=== PATIENT | male | born 1975 | race Caucasian/White ===

== ENCOUNTER 2019-01-09 10:16 | Emergency (ER) | payer OTHER ==
[~2019-01-09] VITALS: Ht 182.9 cm; Wt 54.4 kg
[~2019-01-09 10:16] MED LIST: ATIVAN1 MG PO; BACTRIM DS TAB1 EACH PO; CARAFATE1 GM/10 ML PO; DOXYCYCLINE 10100 MG PO; KEFLEX500 MG PO; LYRICA 50 MG50 MG PO; LYRICA300 MG PO; NIACIN 500 MG500 M1 PO; RISPERDAL 1 MG T1 MG PO; RISPERDAL1 MG/1 ML; RISPERDAL2 MG PO; RISPERDAL25 MG/2 ML IM; SERTRALINE HCL100 MG PO; TEGRETOL XR400 MG PO; TRAZODONE HCL50 MG PO; VIMPAT100 MG PO; ZOLOFT 50 MG TA50 M1 PO
[2019-01-09 10:17] VITALS: BP 138/116
== END 2019-01-09 11:18 | disposition home or self-care (01) ==
LOC: ER 10:16
DX: R56.9 Unspecified convulsions (principal); F20.9 Schizophrenia, unspecified; F17.210 Nicotine dependence, cigarettes, uncomplicated; Z91.013 Allergy to seafood

== ENCOUNTER 2019-01-09 11:35 | Emergency (ER) | payer OTHER ==
[~2019-01-09] VITALS: Ht 175.3 cm; Wt 74.8 kg
[2019-01-09 13:08] LABS: ABSOLUTE NEUTROPHILS 4.7 thou/uL (1.4-8.2); BASOPHILS 0.7 % (0.0-2.0); EOSINOPHILS 0.4 % (0.0-3.0); HEMOGLOBIN 15.6 gm/dL (14.0-18.0); LYMPHOCYTES 24.8 % (24.0-44.0); MCHC 34.6 g/dL (28.0-37.0); MCV 98.2 fL (80.0-100.0); MONOCYTES 7.6 % (1.0-8.0); PLATELET COUNT 200 thou/uL (150-400); POLYS 66.5 % (36.0-66.0); RBC 4.58 mil/uL (4.50-6.00); RDW 13.4 % (10.5-14.5); WBC 7.1 thou/uL (4.0-11.0)
[2019-01-09 13:15] LABS: ANION GAP 4 mmol/L (7-16); BUN 7 mg/dL (7-18); CHLORIDE 101 mmol/L (98-107); CO2 31 mmol/L (21-32); GLUCOSE 83 mg/dL (74-106); POTASSIUM 4.6 mmol/L (3.5-5.1); SODIUM 136 mmol/L (136-145)
[2019-01-09 13:24] LABS: TROPONIN-I <0.06 ng/mL (<0.06)
[2019-01-09 16:45] VITALS: BP 117/78
--- NOTE | 2019-01-12 18:01 | EKG ---
[address] [place] [address] ELECTROCARDIOGRAM REPORT Name: SALVADORTRU KARLO [id number] ������������������ Admission: 01/09/19 ������������������ Attend Phys: Discharge: 01/09/19 ������������������ Date of : 75 Report #: [id number] ����������������������������������������������������������������� [id number] THIS REPORT FOR: //name// [facility] Test Date: 2019-01-09 Test Time: 12:45:20 Pat Name: TRU FRANCO Department: Room: Gender: Cement Mixer: : 1975 Requested By: Tru Solomon Order Number: [id number] MD: Kyle Dockery Measurements Intervals [place] Rate: 72 P: 70 WV: 167 QRS: -26 QRSD: 86 T: 83 QT: 345 QTc: 378 Interpretive Statements Sinus rhythm Abnormal R-wave progression, late transition Leftward axis Compared to ECG 05/29/2015 14:36:05 No significant change was found Electronically Signed On 01-12-2019 18:01:41 CDT by Kyle Dockery [email or web address] ��������������������������������������������� <ELECTRONICALLY SIGNED> ���������������������������������������� By: Kyle Dockery MD, [facility] ��������������������������������������������� 01/12/19 1801 1245 1245 Kyle Dockery MD, FACC /EPI
== END 2019-01-09 23:31 | disposition home or self-care (01) ==
LOC: ER 11:35
PROVIDERS: Emergency Medicine
DX: E16.2 Hypoglycemia, unspecified (principal); R55 Syncope and collapse; F17.210 Nicotine dependence, cigarettes, uncomplicated; F20.9 Schizophrenia, unspecified; Z91.013 Allergy to seafood

== ENCOUNTER 2019-03-27 09:11 | Day surgery (SDC) | payer OTHER ==
[~2019-03-27] VITALS: Ht 182.9 cm; Wt 53.5 kg
[~2019-03-27 09:11] MED LIST changes: +CLOBAZAM20 MG PO; +INVEGA SUS117 MG/0.7 IM; +REMERON15 MG PO
[2019-03-27 10:15] VITALS: BP 100/73
--- NOTE | 2019-03-31 06:23 | O ---
[facility] [place] [address] OPERATIVE REPORT Name: RADHA FRANCO Room #: DEP [facility]#: [id number] Admission: 03/27/19 Attend Phys: Emeka Tesfaye MD Discharge: 03/27/19 Date of : 75 Report #: [id number] THIS REPORT FOR: //name// CC: URIEL Tesfaye DATE OF SERVICE: 03/27/2019 PREOPERATIVE DIAGNOSIS: Lesion of left upper lid and brow. POSTOPERATIVE DIAGNOSIS: Lesion of left upper lid and brow. PROCEDURE: Excision of lesion of left upper lid and brow with myocutaneous flap repair of defect. SURGEON: Emeka Tesfaye MD COOK COLD MEAT: None. ANESTHESIA: MAC. COMPLICATIONS: None. INDICATIONS FOR SURGERY: This pleasant 43-year-old gentleman has an erythematous enlarging mass in his central left brow that extends into his upper lid and on to his forehead. The lesion was thought to most likely be benign, but it could be a Hansa cell carcinoma. The lesion is being excised with permanent histopathologic analysis of the tissue with subsequent repair of that ensuing defect. Informed consent was obtained to include but not limited to the potential risk for loss of vision, bleeding, infection, failure to improve the problem, the potential need for further surgery or treatment. DESCRIPTION OF PROCEDURE: The patient was taken to the operating room where 2% Xylocaine with epinephrine mixed with equal parts of 0.75% Marcaine with Wydase was administered to the left brow, the left upper lid, left side of the forehead, the glabella and the left infratemporal fossa. The patient was subsequently prepped and draped in the usual sterile fashion. A fine tip skin marking pen was then used to outline the lesion including 2 mm of normal appearing tissue to ensure that the entire lesion was removed. The incisions were then made with a 15 blade and carried down to the muscular layer. The dissection was then carried across the periosteum staying anterior to the supraorbital neurovascular bundle. The lesion was excised en bloc. It appeared cystic in nature. Hemostasis was achieved in the field with diligent pinpoint monopolar cautery. [address] [address] OPERATIVE REPORT Name: RADHA FRANCO Room #: DEP [facility] [place].R.#: [id number] Admission: 03/27/19 Attend Phys: Emeka Tesfaye MD Discharge: 03/27/19 Date of : 75 Report #: [id number] A myocutaneous flap was then developed laterally to correct the defect. Hemostasis was then re-achieved. The flap was then advanced and secured with interrupted buried 5-0 and 6-0 Vicryl sutures deep. The more superficial closure was accomplished in a linear fashion with interrupted 6-0 plain gut sutures. The wounds were then cleaned and dressed with erythromycin ophthalmic ointment. The patient subsequently transported to the recovery area having tolerated the procedure well with no anesthetic or operative complications being noted. <ELECTRONICALLY SIGNED> By: Emeka Tesfaye MD 03/31/19 0623 1124 1150 Emeka Tesfaye MD /wale
--- NOTE | 2019-03-31 13:46 | PATH ---
[facility] [address] [place] [address] PATHOLOGY RPT PROCEDURE Name: TRU FRANCO [id number] Admission: 03/27/19 Date of : 75 Discharge: 03/27/19 Report #: [id number] Path Case #: [id number] LCA Accession Number: [id number] . 01 Material submitted: . lid - LEFT EYE UPPER LID. Modifiers: left, upper . 02 Diagnosis: "Left eye upper lid lesion", excision: - Epidermal inclusion cyst. (CLW/db; 03/28/2019) LBQ 03/28/2019 1324 Local . 02 Electronically signed: . Kristel Chau MD, Pathologist NPI- [id number] . 01 Gross description: . Received in formalin, labeled "Tru Franco, left eye upper lid", is an unoriented ellipse of hairbearing (anterior aspect) wilson-white skin measuring 1.6 x 0.7 cm with underlying intact roman-white cyst measuring 1.2 x 1.0 x 0.8 cm. The resection margins are inked black. Serially sectioned to reveal a smooth inner lining. Specimen is entirely submitted in A1. ([facility]; 03/27/2019) [facility] 03/28/2019 1321 Local . 02 Pathologist provided ICD-10: L72.0 . 02 CPT . 216001 Specimen Comment: A courtesy copy of this report has been sent to Specimen Comment: [phone]. Specimen Comment: Report sent to / DR GUTIERREZ Performed at: [address], [place] [id number] MD Cabrera Solis MD Phone: [phone] Performed at: [address] [id number] MD Brit Rogers MD Phone: [phone]
[2019-06-04] MEDS ORDERED: PROAIR HFA8.5 GM INH (09:52)
[2019-06-04] MEDS ORDERED: STIOLTO RESPIMAT4 GM INH (09:53)
== END 2019-03-27 12:05 | disposition home or self-care (01) ==
LOC: OR 09:11 → TBA 09:12 → OR 12:05
DX: H02.9 Unspecified disorder of eyelid (principal); L72.0 Epidermal cyst; F20.9 Schizophrenia, unspecified; Z98.890 Other specified postprocedural states; Z88.8 Allergy status to other drugs, medicaments and biological substances; Z87.891 Personal history of nicotine dependence; Z79.899 Other long term (current) drug therapy
CPT/HCPCS: 50010; 50101; 50386; 50398; 51636; 56528; 56531; 62110; 62850; 70005

== ENCOUNTER 2019-06-05 05:41 | Day surgery (SDC) | payer OTHER ==
[~2019-06-05] VITALS: Ht 182.9 cm; Wt 56.7 kg
[~2019-06-05 05:41] MED LIST changes: +PROAIR HFA8.5 GM INH; +STIOLTO RESPIMAT4 GM INH
[2019-06-05 07:20] VITALS: BP 107/78
--- NOTE | 2019-06-09 06:22 | O ---
[facility] [place] [address] OPERATIVE REPORT Name: RADHA FRANCO Room #: DEP [facility]..#: [id number] Admission: 06/05/19 Attend Phys: Emeka Tesfaye MD Discharge: 06/05/19 Date of : 75 Report #: [id number] THIS REPORT FOR: //name// CC: Paolo Tesfaye DATE OF SERVICE: 06/05/2019 PREOPERATIVE DIAGNOSIS: Lesion of right lower lid. POSTOPERATIVE DIAGNOSIS: Lesion of right lower lid. PROCEDURE: Excision of lesion of right lower lid with myocutaneous flap repair of defect. SURGEON: Emeka Tesfaye M.D. CANOE INSPECTOR FINAL: None. ANESTHESIA: MAC. COMPLICATIONS: None. INDICATIONS FOR SURGERY: This pleasant 43-year-old gentleman has a nodular subcutaneous mass in his lateral right lower lid and cheek that is slowly enlarging with time. The lesion is thought to most likely be benign in nature, but such as not known definitively. The current procedures are undertaken in order to remove the lesion in its macroscopic entirety and to allow the pathologist to tell us what the tissue represents. Informed consent was obtained to include but not limited to the potential risk for loss of vision, bleeding, infection, failure to improve the problem, the potential need for further surgery or treatment. DESCRIPTION OF PROCEDURE: The patient was taken to the operating room where 2% Xylocaine with epinephrine mixed with equal parts 0.75% Marcaine with Wydase was administered transcutaneously and transconjunctivally to the right lower lid, the right lateral canthus, the right cheek and the right infratemporal fossa. The patient was subsequently prepped and draped in the usual sterile fashion. A fine tip skin marking pen was then utilized to outline the tissue overlying the mass. The incision was oriented parallel to relaxed skin tension line. The incisions were then made with a 15 blade, removing the overlying skin from the lesion, which was thought to have been its origin. A Katie scissor was then used to dissect 360 degrees around the mass and taken down on to the periosteum. [address] [address] OPERATIVE REPORT Name: RADHA FRANCO Room #: DEP [facility] [place] M.R.#: [id number] Admission: 06/05/19 Attend Phys: Emeka Tesfaye MD Discharge: 06/05/19 Date of : 75 Report #: [id number] The blunt dissection was accomplished around the lesion to ensure that it macroscopically at least was completely excised. It did appear to be well encapsulated. The lesion was then passed off the field. The field was then dried with diligent pinpoint monopolar cautery. A myocutaneous flap was then developed laterally. Hemostasis was then re-achieved. The flap was then advanced and secured with interrupted 6-0 Vicryl sutures deep. The skin was then closed with multiple interrupted 6-0 plain gut sutures. The wound was then cleaned and dressed with erythromycin ophthalmic ointment. The patient subsequently transported to the recovery area having tolerated the procedure well with no anesthetic or operative complications being noted. <ELECTRONICALLY SIGNED> By: Emeka Tesfaye MD 06/09/19 0622 0744 0759 Emeka Tesfaye MD /nt
--- NOTE | 2019-06-09 16:06 | PATH ---
[facility] [address] [place] [address] PATHOLOGY RPT PROCEDURE Name: SALVADORTRU DIETRICH Room #: DEP [facility]..#: [id number] Admission: 06/05/19 Date of : 75 Discharge: 06/05/19 Report #: [id number] Path Case #: [id number] LCA Accession Number: [id number] . 01 Material submitted: . eyelid - RIGHT LOWER LID EYE LESION. Modifiers: right, lower . 01 Clinical history: . Lesion right lower eyelid . 02 Diagnosis: Cyst, right lower lid eye lesion, excision: - Mature keratinous cyst. - Negative for malignancy. (IUV:marina; 06/09/2019) QMS 06/09/2019 1439 Local . 02 Electronically signed: . Brit Rogers MD, Pathologist NPI- [id number] . 01 Gross description: . The specimen is received in formalin, labeled "Tru Hodge, right lower lid eye lesion" and consists of an ovoid segment of pink-wilson skin measuring 1.9 x 0.7 cm with an underlying intact white cyst measuring 1.1 x 1.1 x 0.8 cm. The cyst contains soft amorphous white material and a credit and collections representative section is submitted in A1. (SDY; 06/06/2019) SYU/SYU 06/06/2019 1219 Local . 02 Pathologist provided ICD-10: H02.822 . 02 CPT . 807329 Specimen Comment: A courtesy copy of this report has been sent to [phone] Specimen Comment: [phone] Specimen Comment: Report sent to and Performed at: [address], [place] [id number] MD Cabrera Solis MD Phone: [phone] Performed at: [address] [id number] MD Brit Rogers MD Phone: [phone]
== END 2019-06-05 08:10 | disposition home or self-care (01) ==
LOC: OR 05:41 → TBA 05:42 → OR 08:10
DX: L72.0 Epidermal cyst (principal); H02.89 Other specified disorders of eyelid; J43.1 Panlobular emphysema; F20.9 Schizophrenia, unspecified; F17.210 Nicotine dependence, cigarettes, uncomplicated; Z98.890 Other specified postprocedural states; Z79.899 Other long term (current) drug therapy; Z88.8 Allergy status to other drugs, medicaments and biological substances
CPT/HCPCS: 50010; 50101; 50386; 50398; 51636; 56528; 56531; 62110; 62850; 70005

== ENCOUNTER 2019-09-07 17:36 | Inpatient (IN) | payer OTHER ==
[~2019-09-07] VITALS: Ht 182.9 cm; Wt 57.7 kg
[2019-09-07 17:56] LABS: HEMATOCRIT 52.2 % (42.0-52.0); HEMOGLOBIN 16.9 gm/dL (14.0-18.0); MCHC 32.3 g/dL (28.0-37.0); MCV 105.2 fL (80.0-100.0); PLATELET COUNT 217 thou/uL (150-400); RBC 4.96 mil/uL (4.50-6.00); RDW 14.1 % (10.5-14.5); WBC 19.9 thou/uL (4.0-11.0)
[2019-09-07 17:58] LABS: URINE BILIRUBIN NEGATIVE (Negative); URINE BLOOD 2+ (Negative); URINE CLARITY CLEAR; URINE COLOR YELLOW; URINE GLUCOSE-RANDOM* NEGATIVE (Negative); URINE KETONES NEGATIVE (Negative); URINE LEUKOCYTES-REFLEX NEGATIVE (Negative); URINE NITRITE-REFLEX NEGATIVE (Negative); URINE PROTEIN (DIPSTICK) 2+ (Negative); URINE SPECIFIC GRAVITY >= 1.030 (1.005-1.035); URINE UROBILINOGEN 0.2 E.U./dl (0.2-1.0)
[2019-09-07 18:01] LABS: CALCIUM 9.7 mg/dL (8.5-10.1); CREATININE 1.5 mg/dL (0.7-1.3); POTASSIUM 3.7 mmol/L (3.5-5.1)
[2019-09-07 18:07] LABS: AMP/METHAMP Negative (Negative); BARBITURATES Negative (Negative); BENZODIAZEPINES POSITIVE (Negative); COCAINE Negative (Negative); METHADONE Negative (Negative); OPIATES Negative (Negative); PCP Negative (Negative)
[2019-09-07 18:10] LABS: FINE GRANULAR CASTS 0-3 Few /LPF (None Seen); HYALINE CASTS 4-10 Moderate /LPF (None Seen); SQUAMOUS 0-3 Few /LPF (0-3)
[2019-09-07 18:10] LABS: ALBUMIN 4.2 g/dL (3.4-5.0); TOTAL BILIRUBIN 0.3 mg/dL (<0.1-1.0); TOTAL PROTEIN 8.3 g/dL (6.4-8.2)
[2019-09-07 18:11] LABS: BACTERIA-REFLEX None Seen /HPF (None Seen); CRYSTALS None Seen /LPF (None Seen); URINE RBC 3-10 Few /HPF (0-2); URINE WBC-REFLEX 0-5 Rare /HPF (0-5)
[2019-09-07 18:48] LABS: ABSOLUTE NEUTROPHILS 14.3 thou/uL (1.4-8.2); PLATELET ESTIMATE NORMAL
[2019-09-07 20:59] VITALS: BP 119/58
[2019-09-07 21:55] VITALS: BP 99/64
[2019-09-07 22:08] VITALS: BP 106/76
[2019-09-08] VITALS (7 sets, daily range): BP systolic 92–137; BP diastolic 50–82
[2019-09-08 04:40] LABS: HEMATOCRIT 43.3 % (42.0-52.0); MCH 34.2 pg (26.0-34.0); MCHC 33.5 g/dL (28.0-37.0); RBC 4.25 mil/uL (4.50-6.00); RDW 13.9 % (10.5-14.5); WBC 10.5 thou/uL (4.0-11.0)
[2019-09-08 04:44] LABS: HEMOGLOBIN 14.5 gm/dL (14.0-18.0)
[2019-09-08 04:51] LABS: CREATININE 0.7 mg/dL (0.7-1.3); POTASSIUM 4.3 mmol/L (3.5-5.1)
--- NOTE | 2019-09-08 04:57 | NUR ---
PATIENT ARRIVED ON UNIT AROUND 2139. PT WAS IN POST-ITCAL STATE. PT WILL RESPOND TO DIRECT QUESTIONS HOWEVER UNABLE TO ANSWER ADMISSION QUESTIONS. PT MOTHER ACCOMPANIED TO EMERGENCY HOWEVER SHE LEFT BEFORE ADMISSION TO UNIT. CONSENTS STILL NEED TO BE SIGNED AND ADMISSION QUESTIONS ANSWERED. PT HAS BEEN VERY LETHARGIC FROM MEDICATIONS GIVEN IN ED. PT HAS A FLAT AFFECT WHEN INITIATING RESPONSES. PT HAS BEEN AFEBRILE, VITALS STABLE, HR HAS BEEN 78-108. DENIES CHEST PAIN, SOA, N/V/D. WILL MONITOR PT FOR SEIZURES AND ANY CHANGES.
--- NOTE | 2019-09-08 15:30 | NUR ---
ASSESSMENT: CM REVIEWED CHART AND SPOKE WITH PATIENTS MOTHER YAW WHO IS PATIENTS LEGAL GUARDIAN. PT HAS HX OF SCHIZOPHRENIA AND HOSPITALIZED FOR A SEIZURE AFTER NOT TAKING HIS MEDICATIONS. PT LIVES IN AN APT ALONE. PT HAS SERVICES THROUGH HIS MEDICAID THROUGH [employer] WHERE SOMEONE HELPS HIM WITH ERRANDS/MEALS 22HRS PER WEEK. PT IS ABLE TO SHOWER AND AMBULATE INDEPENDENTLY. PT HAS NOT BEEN TO A SNF OR HAD HH IN THE PAST. PTS MOTHER REPORTS THAT [employer] OR SHE HELPS GET HIS MEDICATIONS OR MAKE SURE HE TAKES THEM BUT THE STATES THEY DID NOT COME OUT THIS WEEK. PTS MOTHER REPORTS THAT PATIENT IS GOING TO BE STAYING WITH HER ONCE HE GETS OUT OF THE HOSPITAL SO SHE CAN HELP HIM. CM WILL CONTINUE TO FOLLOW TO ASSIST NEEDED.
--- NOTE | 2019-09-08 15:41 | EKG ---
[facility] [place] [address] ELECTROCARDIOGRAM REPORT Name: RADHA FRANCO Room #: 202-P ADM IN M.R.#: [id number] Admission: 09/07/19 Attend Phys: Jeremiah Canela MD Discharge: Date of : 75 Report #: [id number] THIS REPORT FOR: cc: FAM - Family physician unknown FAM - Family physician unknown Kyle Dockery MD [facility] THIS REPORT FOR: //name// [facility] ED Test Date: 2019-09-07 Test Time: 17:46:13 Pat Name: RADHA FRANCO Department: Room: 202 P Gender: M Math Professor: OPAL : 1975 Requested By: Jeremiah Canela Order Number: [id number] MD: Kyle Dockery Measurements Intervals [place] Rate: 135 P: 86 MO: 147 QRS: -5 QRSD: 83 T: 89 QT: 285 QTc: 428 Interpretive Statements Sinus tachycardia Right atrial abnormality Poor R wave progression Compared to ECG 01/09/2019 12:45:20 Sinus tachycardia is now present Electronically Signed On 09-08-2019 15:40:28 CDT by Kyle Dockery [email or web address] <ELECTRONICALLY SIGNED> By: Kyle Dockery MD, FAC 09/08/19 1540 1746 1746 Kyle Dockery MD, [facility] /EPI
--- NOTE | 2019-09-08 19:08 | NUR ---
VSS-AFEBRILE. FULLY AWAKE AND ORIENTED SHIFT PROGRESSED. NO C/O PAIN. OOB WITH 1 ASSIST TO USE RESTROOM, CAN BE UNSTEADY ON FEET. SEIZURE PRECAUTIONS IN PLACE. NPO DUE TO LETHARGY AND SEIZURES, POSSIBLE WILL RESUME DIET IN THE AM. SOFT, BROWN BM TODAY. FALL PRECAUTIONS IN PLACE, CAN BE IMPULSIVE.
--- NOTE | 2019-09-09 04:24 | NUR ---
ASSUMED PT CARE AT 1900, PT IS ALERT, AWAKE AND ORIENTED TO SELF, PT IS CONFUSED AND CALLS OUT FOR HIS MUM,VS STABLE, SR/ST ON THE MONITOR, NO KNOWN SEIZURES THUS FAR DURING THE SHIFT, NO COMPLAINS OF PAIN, RESTING IN BED IN BED AT THIS TIME, WILL CONTINUE TO MONITOR
[2019-09-09 04:44] VITALS: BP 133/78
[2019-09-09 07:10] VITALS: BP 122/70
--- NOTE | 2019-09-09 11:57 | NUR ---
ON-GOING ASSESSMENT: CM REVIEWED CHART AND REACHED OUT TO PTS GUARDIAN/MOTHER YAW TO DISCUSS HOW PATIENT WILL LIKELY NEED 15/01 SUPERVISION PER RECOMMENDATION FROM PHYSICIAN DISCUSSED IN [place]. MOTHER REPORTS THAT CURRENTLY SHE WILL BE WITH PATIENT 24 SHE WORKS AT A SCHOOL AND DOES NOT ANTICIPATE IT WILL BE OPENED FOR QUITE SOME TIME. SHE ALSO REPORTS PATIENT HAS A TRADE FACILITATOR THROUGH [employer] AND THEY ARE WORKING ON GETTING PATIENT INTO AN ISL BUT HE HAS TO FAIL HIS COMMUNITY RESOURCES FIRST SHE STATES. SHE REPORTS HIS TRADE FACILITATOR IS YENNI DEE [phone]. CM REACHED OUT TO YENNI AND LEFT A VM. CM ALSO DISCUSSED HH FOR PATIENT AND MOTHER IS AGREEABLE AND WANTED REFERRAL SENT TO [facility] HH. CM SENT REFERRAL AND WAITING TO HEAR BACK.
[2019-09-09 15:40] VITALS: BP 121/75
--- NOTE | 2019-09-09 16:21 | NUR ---
ASSUMMED PT CARE AT APPROXIMATELY 0700. PT AWAKE AND ORIENTED TO SELF. INFO GIVEN AT REPORT THAT THIS IS PT'S BASELINE. FREQUENT REORIENTATION PROVIDED. ASSESSMENT CHARTED. FALL PRECAUTIONS IN PLACE. SEIZURE PRECAUTIONS IN PLACE. PT VOMITED A LARGE AMOUNT AT SHIFT CHANGE IN THE MORNING. COLOR OF EMESIS WAS YELLOW AND DARK BROWN. DR. ONEIL AND DR. FLORIAN NOTIFIED. DR. ONEIL STATED TO CONT. NPO. DR. FLORIAN STATED TO CONSULT GI. ORDERS IMPLEMENTED. GI SAW PT. PT VOMITED A SECOND TIME IN AFTERNOON. LESS AMOUNT OF EMESIS COMPARED TO MORNING VOMIT AMOUNT. PT DENIED HAVING ABDOMINAL PAIN OR ACUTE PAIN. PT RECIEVED ANTI-EMETIC. WILL CONT. TO MONITOR VOMITING/EMESIS. PT DENIES HAVING CHEST PAIN. VITAL SIGNS STABLE. PT COMFORTABLE IN BED. EDUCATED PT ABOUT POC. FREQUENT RE-EDUCATION PROVIDED. PT DENIES HAVING FURTHER CONCERNS.
[2019-09-09 19:43] VITALS: BP 131/83
[2019-09-10 04:52] VITALS: BP 132/80
[2019-09-10 07:30] VITALS: BP 138/77
[2019-09-10 11:30] VITALS: BP 135/88
--- NOTE | 2019-09-10 11:53 | NUR ---
ON-GOING ASSESSMENT: CM REVIEWED CHART AND SPOKE WITH PATIENTS GUARDIAN/MOTHER TO GET HIS PCP WHO IS DR. URIEL GUTIERREZ [facility]ROUGH [facility]. CM CONTACTED [facility] WHO STATES THEY CAN ACCEPT PT AND CM PROVIDED THEM WITH PCP NAME. CM ALSO SPOKE WITH PATIENTS PHARMACY CONSULTANT YENNI WHO IS STILL ATTEMPTING TO GET PATIENT INTO A CARE HOME. PATIENT WILL DISCHARGE HOME WITH PTS MOTHER 15/01 CARE UNTIL PT IS ABLE TO POSSIBLE GET INTO A CARE HOME. CM WILL CONTINUE TO FOLLOW TO ASSIST NEEDED.
--- NOTE | 2019-09-10 12:50 | NUR ---
REPORT RECEIVED FROM RIYA BLAND, CARE TAKEN OVER AT 0700, PT RESTING IN BED, VSS, PT ASSESSED AT 0730, DENIES PAIN, POC REVIEWED, PT ORIENTED X2, MOM CALLED AND UPDATED ON PT'S CONDITION, VERBALIZED UNDERSTANDING. SPEECH IN TO SEE PT AND TEST. PT NEW EATING AND DRINKING NECTAR THICK LIQUIDS. WILL MONITOR.
[2019-09-10 15:30] VITALS: BP 123/75
[2019-09-10 21:17] VITALS: BP 143/95
[2019-09-11 05:00] VITALS: BP 121/80
--- NOTE | 2019-09-11 07:29 | NUR ---
patients cares were assumed at shift change. patient was assessed and meds were passed. patient was given all his meds last night and have a peasful nights sleep. patient did sleep most of this shift. rounding was none. the bed stays in a low and locked position.
[2019-09-11 07:30] VITALS: BP 117/74
[2019-09-11 12:22] VITALS: BP 117/74
--- NOTE | 2019-09-11 12:42 | NUR ---
REC REPORT ON PT FROM Nilo RITTER, PT HAD ALREADY LEFT FOR PROCEDURE. REC REPORT FROM EGD AT 1145, PT ARRIVES NOW, URINATES, SLIGHTLY DIZZY, A&0X4. CLD SO WILL GIVE W/DIRECTIONS TO GO SLOWLY. ENCOURAGED PT TO USE CALL LIGHT FOR ANY NEEDS AND TO CALL WITH ANY AMBULATION NEEDS. ALARM SET. WILL CONTINUE TO MONITOR
[2019-09-11 13:00] VITALS: BP 117/74
--- NOTE | 2019-09-11 13:42 | NUR ---
on-going assessment: CM REVIEWED CHART AND SPOKE WITH PTS MOTHER/GUARDIAN AND NOTIFIED HER THAT PATIENT MAY BE A POSSIBLE DISCHARGE TOMORROW AND WILL NEED 24/7 SUPERVISION AT DISCHARGE. PTS MOTHER STATES PT WILL BE STAYING WITH HER AND THEY ALSO HAVE A FRIEND COMING INTO TOWN THAT MAY BE ABLE TO STAY WITH PT AN ALTERNATIVE PLAN IF NEEDED. PT WILL DISCHARGE HOME WITH HH ([facility]). CM WILL CONTINUE TO FOLLOW TO ASSIST NEEDED.
[2019-09-11 14:19] LABS: TSH 0.954 uIU/mL (0.358-3.740)
[2019-09-11 16:30] VITALS: BP 125/84
--- NOTE | 2019-09-11 16:47 | EEG ---
[facility] [place] [address] ELECTROENCEPHALOGRAM Name: RADHA FRANCO Room #: 202-P [facility] IN M.R.#: [id number] Admission: 09/07/19 Attend Phys: Jeremiah Canela MD Discharge: Date of : 75 Report #: [id number] THIS REPORT FOR: //name// CC: Jeremiah Canela [facility] unknown DATE OF SERVICE: 09/10/2019 INTERPRETATION: This patient is being evaluated for the possibility of seizure. EEG was done by placing the electrode by standard 10-20 system of electrode placement. Both differential and sequential montages were used for recording. Background activity in this patient's EEG is about 7-8 Hz and 30 microvolts. There is a symmetrical activity. Photic stimulation is unremarkable. No active epileptiform activity was noticed. IMPRESSION: This patient's EEG is disorganized and poorly formed. That is a nonspecific finding, which can occur with encephalopathy, effect of psychotropic medication, dementia, etc. No active epileptiform activity was noticed during this record. <ELECTRONICALLY SIGNED> By: Vernon Cabrera MD 09/11/19 1647 1427 1439 Vernon Cabrera MD /nt
--- NOTE | 2019-09-11 18:21 | NUR ---
SUPPLEMENT: PT'S CLEAR LIQ UPON RETURN FROM EGD. NO SUPPLEMENT BROUGHT UNTIL HE RECEIVES MEAL TRAYS (NO OPTION FOR THIS IN LIST)
[2019-09-11 20:10] VITALS: BP 119/77
--- NOTE | 2019-09-11 22:12 | P ---
[facility] [place] [address] PROCEDURE REPORT Name: RADHA FRANCO Room #: 202-P [facility] IN M.R.#: [id number] Admission: 09/07/19 Attend Phys: Jeremiah Canela MD Discharge: Date of : 75 Report #: [id number] THIS REPORT FOR: cc: FAM - Family physician unknown FAM - Family physician unknown Shala Sage DO ~ CC: JEREMIAH SALMON unknown INPATIENT CHART ESOPHAGOGASTRODUODENOSCOPY WITH BIOPSY He is a patient of Dr. Canela. INDICATION FOR PROCEDURE: Evaluate nausea and vomiting. Informed consent for this procedure was obtained prior to the administration of any medication. The risks of the procedure, which include bleeding, perforation, infection, complications of sedation and the possibility I could miss something have been explained to the patient. He has indicated his consent by signing and his mother has given her consent for him to have this procedure done as well after receiving the possible risk list. Anesthesia kindly provided deep sedation for this procedure. DESCRIPTION OF PROCEDURE: With the patient in the left lateral decubitus position, the Olympus upper videoscope was introduced through the upper esophageal sphincter and advanced under direct visualization to the third portion of the duodenum. Findings are noted on withdrawal of the scope. The duodenal mucosa appears normal throughout its entirety. Pylorus, normal mucosa. Antrum, normal mucosa. Body, normal mucosa. Cardia and fundus, normal mucosa. Retroflex view did not reveal any hiatal hernia. The scope was advanced to the distal stomach again and biopsies were obtained from the antrum of the stomach and the body of the stomach x 2 in total and sent to pathology lab for evaluation for possible H. pylori infection. The scope was then withdrawn into the esophagus. The Z-line was appropriately located at the top of the gastric folds and appears normal. The distal 10 cm of the esophagus was severely ulcerated and this has probably been from his protracted vomiting episodes. The more proximal esophageal mucosa appears normal. The scope was withdrawn. The patient went to the Recovery Area in stable condition. He tolerated the procedure well. IMPRESSION: 1. Ulcerated distal 10 cm of the esophagus, likely from constant vomiting recently. 2. Normal stomach and normal duodenum. [facility] [address] [place] [address] PROCEDURE REPORT Name: RADHA FRANCO KARLO Room #: 202-P [facility] IN .R.#: [id number] Admission: 09/07/19 Attend Phys: Jeremiah Canela MD Discharge: Date of : 75 Report #: [id number] RECOMMENDATIONS: To await the gastric biopsies for H. pylori. Continue the proton pump inhibitors. We will start him on a clear liquid diet and advance as tolerated. Thank you very much once again for allowing me to participate in his care. <ELECTRONICALLY SIGNED> By: Shala Sage DO 09/11/19 2212 1145 1156 Shala Sage DO /nt
[2019-09-12 04:45] VITALS: BP 133/85
--- NOTE | 2019-09-12 05:01 | NUR ---
patients cares were assumed at shift change. patient was assessed and meds were passed. patient appers to have now acchieved a better mood then three days ago. he is more appropriate in his communications and polite as well. hourly rounding was done. alarm on the bed is of due to his independent status in his room. the bed remains in a low and locked position. his mother did call this morning checking on him. her questions were about him be discharged today the plan is for her to call the day shift for this information,
[2019-09-12 07:39] VITALS: BP 134/87
[2019-09-12] MEDS ORDERED: PANTOPRAZOLE SO40 M1 PO (09:02)
[2019-09-12] MEDS ORDERED: VITAMIN B-6100 MG PO (09:02)
[2019-09-12] MEDS ORDERED: MAGNESIUM400 MG PO (09:02)
[2019-09-12 11:55] VITALS: BP 133/87
[2019-09-12] MEDS ORDERED: ZYPREXA 5 MG TAB5 M1 PO (15:34)
--- NOTE | 2019-09-12 16:07 | PATH ---
[facility] [address] [place] [address] PATHOLOGY RPT PROCEDURE Name: TRU FRANCO Room #: 202-P ADM IN M.R.#: [id number] Admission: 09/07/19 Date of : 75 Discharge: Report #: [id number] Path Case #: [id number] [facility] Accession Number: [id number] . 01 Material submitted: . stomach - GASTRIC BIOPSY R/O H. PYLORI . 01 Clinical history: . Pre-op diagnosis: Nausea; vomiting Post-op diagnosis: Esophagitis R/O H. pylori . 02 Diagnosis: Gastric mucosa, gastric R/O H. pylori, endoscopic biopsy: - Mild chronic inflammation. - Negative for intestinal metaplasia or atrophy. - Negative for Helicobacter pylori (properly controlled immunohistochemical stain performed). . (IUV:marina; 09/12/2019) QMS 09/12/2019 1316 Local . 02 Electronically signed: . Brit Rogers MD, Pathologist NPI- [id number] . 01 Gross description: . The specimen is received in formalin, labeled "Tru Franco, gastric biopsy, R/O H. pylori". Received are two segments of pale wilson soft tissue ranging in size from 0.5 to 0.6 cm in maximum dimensions. The specimen is submitted entirely in cassette A1. (CAA; 09/11/2019) QAC/QA 09/11/20191951 Local . 02 Pathologist provided ICD-10: K29.50 . 02 CPT . 155097, D32133 Specimen Comment: A courtesy copy of this report has been sent to [phone] Specimen Comment: [phone] Specimen Comment: Report sent to / DR FLORIAN Performed at: 01 [facility] [address] [id number] MD Cabrera Solis MD Phone: [phone] [place] [address] [place] [address] PATHOLOGY RPT PROCEDURE Name: TRU FRANCO Room #: 202-P [facility] IN M.R.#: [id number] Admission: 09/07/19 Date of : 75 Discharge: Report #: [id number] Path Case #: [id number] Performed at: [address] [id number] MD Brit Rogers MD Phone: [phone]
--- NOTE | 2019-09-12 16:12 | NUR ---
[facility]/SUMMARY SPOKE WITH INTAKE THEY RECEIVED ORDERS AND WILL NOTIFY PT TIME OF VISITS.
[2019-09-12 16:30] VITALS: BP 139/87
== END 2019-09-12 17:36 | disposition home or self-care (01) | DRG 100 ==
LOC: ER 17:36 → EROBS 20:51 → 2N 20:51 → ENTRNSPT 09-12 17:10 → 2N 09-12 17:36
PROVIDERS: Nurse Practitioner Family; Physician Assistant; Psychiatry & Neurology Neuromuscular Medicine; ADMIT Hospitalist
PROC: 0DB38ZX Excision of Lower Esophagus, Via Natural or Artificial Opening Endoscopic, Diagnostic (ICD-10-PCS; principal; 2019-09-07)
PROC: 0DB68ZX Excision of Stomach, Via Natural or Artificial Opening Endoscopic, Diagnostic (ICD-10-PCS; principal; 2019-09-07)
DX: G40.909 Epilepsy, unspecified, not intractable, without status epilepticus (principal); E43 Unspecified severe protein-calorie malnutrition; G93.40 Encephalopathy, unspecified; K22.10 Ulcer of esophagus without bleeding; F20.9 Schizophrenia, unspecified; K21.9 Gastro-esophageal reflux disease without esophagitis
CPT/HCPCS: 10081; 62110; 62900; 70005